=== PATIENT | female | born 1975 | race Caucasian/White ===

== ENCOUNTER 2019-08-21 07:27 | Outpatient (CLI) | payer BC, SELFPAY ==
--- NOTE | ~2019-08-21 | MM_ITS ---
EXAMINATION: MM screening [facility] BI w wilber HISTORY: Screening mammogram TECHNIQUE: Craniocaudal and mediolateral oblique 3-D tomosynthesis images were obtained and synthetic 2-D images were generated. CAD analysis was submitted and interpreted. COMPARISON: Comparison to multiple prior studies sequentially, with oldest reviewed study dated 08/2014. BREAST PARENCHYMAL COMPOSITION: The breasts are extremely dense, which lowers the sensitivity of mamm ography. FINDINGS: There is no evidence of suspicious mass, calcification, or architectural distortion to sugg est malignancy in either breast. There has been no suspicious interval change. IMPRESSION: 1. No mammographic evidence of malignancy. 2. Recommend routine screening mammography in one year. BI-RADS Category 1: Negative Reviewed, dictated and finalized at location A. TENANT COLONEL
== END 2019-08-21 07:28 | disposition home or self-care (01) ==
LOC: ANHIMG 07:34
PROVIDERS: PCP Family Medicine; Visit Provider Obstetrics & Gynecology
DX: Z12.31 Encounter for screening mammogram for malignant neoplasm of breast (principal)
CPT/HCPCS: 77063; 77067

== ENCOUNTER → 2020-05-22 15:45 | Outpatient (CLI) | payer BC, SELFPAY ==
--- NOTE | ~2020-05-22 | XR_ITS ---
EXAMINATION: XR pelvis 1-2V DATE: 05/22/2020 16:52 INDICATION: Low back pain. Left hip pain. TECHNIQUE: An anteroposterior view of the pelvis was obtained. COMPARISON: None. FINDINGS: There is levocurvature of lumbar spine. No fracture. There is mild osteoarthritis of the ri ght sacroiliac joint and left hip joint. There is moderate lumbar spondylosis. IMPRESSION: 1. Polyarticular osteoarthritis. Reviewed, dictated and finalized at location A. E OPERATIONS MANAGER
--- NOTE | ~2020-05-22 | XR_ITS ---
EXAMINATION:XR_CERV2-3V_CR, XR lumbar spine 2-3V, XR thoracic spine 2V DATE: 05/22/2020 16:51 INDICATION: Cervical, thoracic and lumbar spine pain. TECHNIQUE: 1. AP, lateral, lateral swimmers and odontoid views of the cervical spine are provided. 2. AP and lateral views of the thoracic spine were obtained. 3. AP, lateral and coned-down lateral lumbosacral views of the lumbar spine were obtained. COMPARISON: None FINDINGS: Cervical spine: Alignment is normal. Odontoid is intact. Normal atlantoaxial interval. Vertebral body heights are no rmal. Disc spaces are normal. Mild uncovertebral osteoarthritis bilaterally at C3-C4 and C4-C5. Preve rtebral soft tissues are normal. Thoracic spine: Alignment is normal. Vertebral body heights are normal. Mild disc height loss with mild degenerative endplate changes at a few levels in the midthoracic spine. Paravertebral soft tissues are unremarkabl e. Visualized portions of the lungs are clear. Visualized portions of the cardiomediastinal silhouett e is normal. Lumbar spine: 6 degree lumbar levocurvature with minimal rotational component. Sagittal alignment is normal. Verteb ral body heights are normal. Mild disc height loss at L4-L5. Mild to moderate lumbar facet osteoarthr itis at L4-L5 and L5-S1. Sacroiliac joints are unremarkable. IMPRESSION: 1. Mild lumbar levorotocurvature. 2. Minimal cervical, mild midthoracic and mild lower lumbar spondylosis. Reviewed, dictated and finalized at [facility]. CER OPERATOR IMPRESSION: 1. Mild lumbar levorotocurvature. 2. Minimal cervical, mild midthoracic and mild lower lumbar spondylosis. IMPRESSION: 1. Mild lumbar levorotocurvature. 2. Minimal cervical, mild midthoracic and mild lower lumbar spondylosis.
== END ==
PROVIDERS: Visit Provider Chiropractor
DX: M47.817 Spondylosis without myelopathy or radiculopathy, lumbosacral region (principal); M47.818 Spondylosis without myelopathy or radiculopathy, sacral and sacrococcygeal region; M54.6 Pain in thoracic spine; M54.2 Cervicalgia
CPT/HCPCS: 72040; 72070; 72100; 72170

== ENCOUNTER 2020-10-19 16:36 | Outpatient (CLI) | payer BC, SELFPAY ==
--- NOTE | ~2020-10-19 | MM_ITS ---
EXAMINATION: MM screening [facility] BI w wilber HISTORY: Screening mammogram TECHNIQUE: Craniocaudal and mediolateral oblique 3-D tomosynthesis images were obtained and synthetic 2-D images were generated. CAD analysis was submitted and interpreted. COMPARISON: 08/21/2019, 07/01/2018, 05/21/2017 BREAST PARENCHYMAL COMPOSITION: The breasts are extremely dense, which lowers the sensitivity of mamm ography. FINDINGS: RIGHT BREAST: A mass is present in the posterior third of the lower, slightly outer breast. There is asymmetry in the posterior third of the breast in line with the nipple axis on the craniocaudal view. LEFT BREAST: There is no evidence of suspicious mass, calcification, or architectural distortion to s uggest malignancy. There has been no significant interval change. IMPRESSION: 1. Right breast findings as described above. 2. Additional mammographic views and possible breast ultrasound are recommended. BI-RADS Category 0: Incomplete: Needs additional imaging evaluation. Reviewed, dictated and finalized at location A. IMPRESSION: 1. Right breast findings as described above. 2. Additional mammographic views and possible breast ultrasound are recommended . BI-RADS Category 0: Incomplete: Needs additional imaging evaluation.
== END 2020-10-19 16:37 | disposition home or self-care (01) ==
LOC: ANHIMG 16:37
PROVIDERS: Visit Provider Obstetrics & Gynecology
DX: Z12.31 Encounter for screening mammogram for malignant neoplasm of breast (principal); R92.8 Other abnormal and inconclusive findings on diagnostic imaging of breast
CPT/HCPCS: 77063; 77067

== ENCOUNTER 2020-10-25 12:25 | Outpatient (CLI) | payer BC, SELFPAY ==
--- NOTE | ~2020-10-25 | US_ITS ---
US soft tissue LE RT, US soft tissue LE LT 10/25/2020 12:57 Indication: Evaluate for Sierra's cysts in the popliteal fossa Procedure: High-resolution ultrasound of the popliteal fossa bilaterally Comparison: No prior studies for comparison. Findings: Normal heterogeneous soft tissue in the popliteal fossa bilaterally without discrete mass o r fluid collection. No evidence for Sierra's cyst. Impression: 1: Normal bilateral ultrasound of the popliteal fossa. Reviewed, dictated and finalized at location B. Impression: 1: Normal bilateral ultrasound of the popliteal fossa. Impression: 1: Normal bilateral ultrasound of the popliteal fossa.
== END 2020-10-25 12:26 | disposition home or self-care (01) ==
PROVIDERS: Visit Provider Emergency Medicine
DX: M71.22 Synovial cyst of popliteal space [Baker], left knee (principal)
CPT/HCPCS: 76882

== ENCOUNTER 2020-11-08 10:46 | Outpatient (CLI) | payer BC, SELFPAY ==
--- NOTE | ~2020-11-08 | US_ITS ---
EXAMINATION: US VENOUS LOWER EXT HELGA DATE: 11/08/2020 11:54 INDICATION: Venous insufficiency TECHNIQUE: Grayscale images without and with compression and Doppler images of the bilateral lower ex tremity veins were obtained. COMPARISON: None. FINDINGS: Right lower extremity: The right common femoral vein, profunda (deep) femoral vein, femoral vein, popliteal vein, gastrocnem ius vein, posterior tibial veins and greater saphenous vein are patent. common femoral vein: no reflux femoral vein: no reflux popliteal vein: no reflux profunda femoral vein: no reflux greater saphenous vein: no reflux lesser saphenous vein: no reflux Greater saphenous Origin: 4.0 mm no reflux [id number]: 3.6 mm no reflux Mid calf: mm no reflux Lesser saphenous Proximal: 3.5 mm no reflux Distal: 1.9 mm no reflux Left lower extremity: The left common femoral vein, profunda femoral vein, femoral vein, popliteal vein, gastrocnemius vein , posterior tibial veins and greater saphenous vein are patent. common femoral vein: no reflux femoral vein: no reflux popliteal vein: no reflux profunda femoral vein: no reflux greater saphenous vein: no reflux lesser saphenous vein: no reflux] Greater saphenous Origin: 4.9 mm no reflux [id number]: 4.1 mm no reflux Mid calf: 2.7 mm no reflux Lesser saphenous Proximal: 2.1 mm no reflux Distal: 2.2 mm no reflux IMPRESSION: 1. Patent bilateral lower extremity veins. No evidence of deep venous thrombosis. 2. No reflux in either lower extremity. Reviewed, dictated and finalized at location A. IMPRESSION: 1. Patent bilateral lower extremity veins. No evidence of deep venous thrombos is. 2. No reflux in either lower extremity.
== END 2020-11-08 10:47 | disposition home or self-care (01) ==
PROVIDERS: PCP Emergency Medicine; Visit Provider Emergency Medicine
DX: I87.2 Venous insufficiency (chronic) (peripheral) (principal)
CPT/HCPCS: 93970

== ENCOUNTER 2022-12-25 00:24 | Day surgery (SDC) | payer BC, SELFPAY ==
[2022-12-12 12:48] VITALS: BMI 29.2
[2022-12-25 07:15] VITALS: BP 117/88; PULSE 75; RESP 18; TEMP 36.1; O2SAT 100
[2022-12-25] MEDS: LACTATED RINGERS 1,000 ML 150 ML IV CONT (07:33)
--- NOTE | 2022-12-25 08:14 | WPDANESEPPF ---
Anes - Initial Pre Proc Eval Procedure: Operation Date: 12/25/22 08:30 Proposed Procedures p Screening Colonoscopy - Gerald Delgadillo MD Date/Time: 12/25/22 08:14 Surgeon: Gerald Delgadillo MD Pre Op Diagnosis: family hx colon polyps, neoplasm screening Patient Data Age: 47 Gender: F Height: 1.68 m Weight: 83.3 kg Last Vital Signs Temp 97 F L 12/25/22 07:15 Pulse 75 12/25/22 07:15 Resp 18 12/25/22 07:15 BP 117/88 12/25/22 07:15 Pulse Ox 100 12/25/22 07:15 O2 Del Method Room Air 12/25/22 07:15 Allergies Allergy/AdvReac Type Severity Reaction Status Date / Time No Known Allergies Allergy Mild Verified 12/25/22 07:15 Home Medications Medication Instructions Recorded Confirmed Type montelukast 10 mg tablet 10 mg PO DAILY #30 tabs 05/22/20 12/12/22 Rx (Singulair) cetirizine 10 mg tablet (Zyrtec) 10 mg PO DAILY 12/12/22 12/12/22 History fluticasone 100 mcg-salmeterol 50 1 inh inhalation Q12H 12/12/22 12/12/22 History mcg/dose blistr powdr for inhalation (Advair Diskus) Patient hx anesthesia problems: none Family hx anesthesia problems: none Results Review: All pre-operative results and documents have been reviewed as part of the pre-operative evaluation. FORMERLY [facility], [facility] Family History Family History (Updated 02/24/14 @ 07:13 by DOCTOR UNKNOWN) Father Family history of elevated blood lipids Social History Social History Smoking status: Never smoker Alcohol intake: current Drinks per week: 7 Substance use type: does not use Living arrangements: with family Spiritual care concerns: No Anes - Eval Final PreProcedure Day of Procedure 12/25/22 08:14 Patient weight: normal Heart: regular rate and rhythm Lungs: clear to auscultation Airway: Mallampati scale class II Neurological: alert and oriented Last oral intake: >/= 8 hours ASA classification: II Emergent: no Anesthetic plan: proceed Anesthesia type and monitoring: general GIVS and standard monitoring Results Review: All pre-operative results and documents have been reviewed as part of the pre-operative evaluation. Informed Consent: The patient's anesthetic plan and its attendant risks and benefits were discussed with the patient/family/POA. Questions were solicited and answers provided to the satisfaction of the patient/family/POA.
--- NOTE | 2022-12-25 08:34 | PM.HPGS ---
History of Present Illness History of Present Illness Consent: Risks, benefits, and alternatives have been discussed and questions answered. Patient agrees to proceed with procedure. Chief complaint: family hx colon polyps, neoplasm screening Narrative: Danielle Blount is a 47 year old female here for first screening colonoscopy Review of Systems Constitutional: Constitutional: Denies headache(s) and Denies weakness Eyes: Eyes: Denies blurry vision ENT: Reports Normal hearing present, Denies headache(s) and Denies neck pain Cardiovascular: Cardiovascular: Denies chest pain and Denies dyspnea Respiratory: Respiratory: Denies dyspnea Gastrointestinal: Gastrointestinal: Reports no additional gastrointestinal complaints Genitourinary: Genitourinary: Denies dysuria Musculoskeletal: Musculoskeletal: Denies neck pain Integumentary/Breasts: Skin/Breast: Denies dry skin Neurologic: Reports Normal hearing present, Denies headache(s) and Denies weakness Psychiatric: Psychiatric: Denies anxiety Endocrine: Endocrine: Denies change in body appearance Hematologic/Lymphatic: Hematologic/Lymphatic: Denies easy bleeding Allergic/Immunologic: Allergic/Immunologic: Denies urticaria PMFSH Past Medical History Medical History (Updated 12/25/22 @ 08:34 by Gerlad Delgadillo MD) Colon cancer screening Family History Family History (Updated 02/24/14 @ 07:13 by DOCTOR UNKNOWN) Father Family history of elevated blood lipids Social History Social History Smoking status: Never smoker Alcohol intake: current Drinks per week: 7 Substance use type: does not use Living arrangements: with family Spiritual care concerns: No Meds Home Medications and Allergies Home Medications Medication Instructions Recorded Confirmed Type montelukast 10 mg tablet 10 mg PO DAILY #30 tabs 05/22/20 12/12/22 Rx (Singulair) cetirizine 10 mg tablet (Zyrtec) 10 mg PO DAILY 12/12/22 12/12/22 History fluticasone 100 mcg-salmeterol 50 1 inh inhalation Q12H 12/12/22 12/12/22 History mcg/dose blistr powdr for inhalation (Advair Diskus) Allergies Allergy/AdvReac Type Severity Reaction Status Date / Time No Known Allergies Allergy Mild Verified 12/25/22 07:15 Vital Signs Vital Signs - 24 hr 12/25/22 07:15 Temperature 97 F L Pulse Rate 75 Respiratory Rate 18 Blood Pressure 117/88 Pulse Oximetry 100 Oxygen Delivery Room Air Exam Const: General: comfortable and no acute distress HENMT: Face/Nose/Sinus: Normal nares present Eyes: General: appearance normal, both eyes and all related structures Neck: Neck: no JVD Resp: Auscultation: clear to auscultation bilaterally Cardio: Rate: regular rate Rhythm: regular rhythm GI: Inspection: non-distended GI Palp: Yes Soft to palpation Skin: General skin exam: normal color Neuro: General: gait normal Speech: normal speech Extrem: General: normal to inspection Psych: Mental Status: mental status grossly normal Assessment and Plan Assessment and plan (1) Colon cancer screening: Code(s): Z12.11 - Encounter for screening for malignant neoplasm of colon Status: Acute Assessment and Plan: colonoscopy
[2022-12-25 08:59] VITALS: BP 97/44; PULSE 72; RESP 18; O2SAT 97
[2022-12-25 09:09] VITALS: BP 101/62; PULSE 63; RESP 17; O2SAT 99
[2022-12-25 09:19] VITALS: BP 106/67; PULSE 67; RESP 19; O2SAT 100
== END 2022-12-25 09:23 | disposition home or self-care (01) ==
PROVIDERS: PCP Emergency Medicine; Visit Provider Internal Medicine Gastroenterology
PROC: 0DJD8ZZ Inspection of Lower Intestinal Tract, Via Natural or Artificial Opening Endoscopic (ICD-10-PCS; CPT 45378; principal; 2022-12-25 08:30)
DX: Z12.11 Encounter for screening for malignant neoplasm of colon (principal); Z83.71 Family history of colonic polyps; Z79.51 Long term (current) use of inhaled steroids
CPT/HCPCS: 45378; J2704; J7120

== ENCOUNTER 2025-06-22 14:28 | Emergency (ER) | payer BC, SELFPAY ==
[2025-06-22 14:43] VITALS: BP 126/82; PULSE 103; RESP 16; TEMP 36.8; O2SAT 99
--- NOTE | 2025-06-22 14:53 | ED.URI ---
HPI - URI/Sore Throat General Chief Complaint: Upper Respiratory Infection Stated Complaint: Strep Test patient presents to the [facility] with complaints of headache, fever, chills, body aches that began yesterday. Patient noted she has had a cough for about 1 month following cold symptoms which is not uncommon for her usually needs albuterol inhaler and/or Wixela/steroid inhaler to get over the symptoms. Noted she has been using ibuprofen with some relief of fever. Wanted to know what she had before seeing family tomorrow. Denies sore throat, difficulty swallowing, sinus pain, nausea vomiting, diarrhea. Related Data Home Medications ?Medication ?Instructions ?Recorded ?Confirmed ?Last Taken ?Type cetirizine 10 mg tablet (Zyrtec) 10 mg PO DAILY 12/12/22 03/23/25 Unknown History fluticasone 100 mcg-salmeterol 50 1 inh inhalation Q12H 12/12/22 03/23/25 Unknown History mcg/dose blistr powdr for inhalation (Advair Diskus) estradiol 0.075 mg/24 hr 1 patch transdermal 2XW 03/23/25 03/23/25 Unknown History semiweekly transdermal patch (Vivelle-Dot) progesterone micronized 100 mg 100 mg PO QAM 03/23/25 03/23/25 Unknown History capsule Allergies Allergy/AdvReac Type Severity Reaction Status Date / Time No Known Allergies Allergy Mild Verified 03/23/25 12:00 Review of Systems Constitutional: Constitutional: Reports as per HPI, Reports chills, Reports fatigue, Reports fever(s) and Denies weakness Eyes: Eyes: Reports no additional eye complaints ENT: Reports as per HPI, Denies vertigo, Denies dizziness, Reports nasal congestion and Denies sore throat Cardiovascular: Cardiovascular: Reports no additional cardiovascular complaints Respiratory: Respiratory: Reports as per HPI, Denies chest congestion, Denies cough, Denies dyspnea and Denies wheezing Gastrointestinal: Gastrointestinal: Reports as per HPI, Denies abdominal pain, Denies diarrhea, Denies nausea and Denies vomiting Genitourinary: Genitourinary: Reports as per HPI Comments: Currently on medications for UTI and symptoms have significantly improved Musculoskeletal: Musculoskeletal: Reports as per HPI, Denies back pain and Reports myalgias Integumentary/Breasts: Skin/Breast: Reports as per HPI, Denies erythema, Denies rash and Denies skin ulcer Neurologic: Reports as per HPI, Denies vertigo, Denies dizziness, Reports headache(s) and Denies weakness Psychiatric: Psychiatric: Reports no additional psychiatric complaints Endocrine: Endocrine: Reports no additional endocrine complaints Hematologic/Lymphatic: Hematologic/Lymphatic: Reports no additional hematologic/lymphatic complaints Allergic/Immunologic: Allergic/Immunologic: Reports no additional allergic/immunologic complaints PMFSH Past Medical History Medical History SVT (supraventricular tachycardia) Colon cancer screening Surgical History Surgical History Hx of dilation and curettage Family History Family History Father Family history of elevated blood lipids Diabetes mellitus Social History Social History Smoking status: Never smoker Alcohol intake: current Drinks per week: 7 Substance use type: does not use Living arrangements: with family Spiritual care concerns: No Exam Const: General: healthy appearing and no acute distress Nutritional Appearance: well nourished Orientation/consciousness: patient oriented x3 Limitations: no limitations HENMT: Head: normal to inspection Ears: external ears normal and TM's normal bilaterally Face/Nose/Sinus: Normal external nose present and Normal nares present Face and sinus: normal facial exam and sinuses nontender Mouth: Yes Normal oral and palatal mucosa present and Yes moist mucous membranes Throat: posterior oropharynx normal Neck: Neck: normal visual inspection and no lymphadenopathy Resp: Effort & Inspection: normal respiratory effort Auscultation: clear to auscultation bilaterally Other: dry cough noted Cardio: Rate: regular rate Rhythm: regular rhythm Skin: General skin exam: normal color Rashes: no rashes Wounds: no wounds Neuro: General: patient oriented x3 Speech: normal speech Gait exam (Neuro): Normal gait present Psych: Mental Status: mental status grossly normal Affect: normal affect Attitude: cooperative Course Course Level of Care: Express Care Visit Vital Signs Vital signs: Vital Signs Temperature 98.2 F 06/22/25 14:43 Pulse Rate 103 H 06/22/25 14:43 Respiratory Rate 16 06/22/25 14:43 Blood Pressure 126/82 06/22/25 14:43 Pulse Oximetry 99 06/22/25 14:43 Temperature 98.2 F 06/22/25 14:43 Pulse Rate 103 H 06/22/25 14:43 Respiratory Rate 16 06/22/25 14:43 Blood Pressure 126/82 06/22/25 14:43 Pulse Oximetry 99 06/22/25 14:43 [facility] Narrative Medical decision making narrative: positive influenza The patient was evaluated by myself in the [facility] care. History is obtained from patient who is an independent historian and physical exam was performed. Available medical records were reviewed at this time. Exam findings show no acute concerns or changes; patient is non-toxic appearing and is in no distress. Patient is appropriate for outpatient treatment and follow-up. I have evaluated and discussed social determinants of health with the patient that could potentially impact subsequent diagnosis and treatment plans. Differential diagnosis and treatment plan were discussed with the patient. Patient agrees with discussion and after shared medical decision making agrees with plan of care. All questions were answered to the patient's satisfaction. Differential Diagnosis Differential Diagnosis: Influenza, sinusitis, upper respiratory infection, COVID, strep, pharyngitis Medical Records I have reviewed the following patient records and this information was taken into consideration when formulating the assessment and plan.: previous labs, previous ER visits, previous hospitalizations and previous clinic visits Lab Data [facility] Lab Attestation statement: I personally reviewed the patient's lab results. Discharge Plan Discharge Clinical Impression: Influenza A Patient Disposition: Home Condition: Stable Instructions: Antibiotic Form, Influenza (ED) Additional Instructions: You are positive for influenza A Take the Tamiflu medication as directed for the next 5 days this can help you feel better faster and take 1 day off of your symptoms. antibiotic is NOT recommended at this time. Recommend antihistamine such as Benadryl at night time and Claritin/Zyrtec/Joanne during the day. Also using steroid nasal spray like Flonase can help with symptoms and congestion. Using sudafed for significant congestion will also give some relief. Cough syrup may cause drowsiness; avoid driving or take it at night time. Use inhaler as needed for cough, wheezing, shortness of breath or chest tightness. Also, recommend symptomatic treatment includes: rest, fluids, increase humidity of the air at home. Recommend Acetaminophen or nonsteroidal anti-inflammatory agents(NSAIDs) as directed in the bottle to reduce fever and/pain/headache. Avoid smoking/second-hand smoke. Limit visits to areas with large crowds. Frequent hand washing or hand sectional belt mold assembler is one of the best ways to prevent spread of infection. Please schedule a followup visit with your personal physician for further evaluation and treatment within 3-5days. Including recheck and discussion of your blood pressure. If your symptoms persist, change or worsen significantly before you can contact your personal physician then please, without delay, go to the emergency department for further evaluation. Patient Language: Puerto Rican Prescriptions: New oseltamivir [Tamiflu] 75 mg capsule 75 mg PO Q12H 5 Days Qty: 10 0RF fluticasone propion-salmeterol [Wixela Inhub] 250-50 mcg/dose blister with device 1 inh inhalation Q12H Qty: 60 0RF albuterol sulfate [Ventolin HFA] 90 mcg/actuation HFA aerosol inhaler 2 puff inhalation QID PRN (Reason: shortness of breath or wheezing) Qty: 8.5 0RF No Action estradiol [Vivelle-Dot] 0.075 mg/24 hr patch semiweekly 1 patch transdermal 2XW Rx Instructions: apply 1 patch for 3 days alternating with 1 patch for 4 days each week for 3 wks per 4-wk cycle progesterone micronized 100 mg capsule 100 mg PO QAM Rx Instructions: off 7 days; repeat cycle escitalopram oxalate [Lexapro] 10 mg tablet 10 mg PO DAILY Qty: 30 1RF cetirizine [Zyrtec] 10 mg Tablet 10 mg PO DAILY fluticasone propion-salmeterol [Advair Diskus] 100-50 mcg/dose Blister With Device 1 inh INHALATION Q12H montelukast [Singulair] 10 mg tablet 10 mg PO DAILY Qty: 30 0RF nitrofurantoin macrocrystal 100 mg capsule 100 mg PO Q12H Qty: 10 0RF Follow-up/Referrals: Uziel Hoffman MD [Primary Care Provider, [facility]] Time of Disposition: 14:57
[2025-06-22 15:07] LABS: EDCOVIDSCREEN Negative (Negative); EDINFLUASCREEN Positive (Negative); EDINFLUBSCREEN Negative (Negative)
== END 2025-06-22 15:06 | disposition home or self-care (01) ==
PROVIDERS: Emergency Provider Nurse Practitioner Family; PCP Emergency Medicine
DX: J10.1 Influenza due to other identified influenza virus with other respiratory manifestations (principal); Z20.822 Contact with and (suspected) exposure to COVID-19
CPT/HCPCS: 87426; 87804; 99212; 99213; G0463